=== PATIENT | female | born 1945 | race Hispanic/Latino ===

== ENCOUNTER → 2020-04-02 | Outpatient (CLI) | payer OTHER ==
[~2020-04-02] MED LIST: LISINOPRIL PO; VALIUM PO; [UNRECOGNIZED DRUG - CODE] PO
--- NOTE | 2020-04-02 13:43 | Diagnostic Imaging Report ---
EXAMINATION: CERVICAL SPINE 4 OR 5 VIEWS INDICATION: Cervical radiculopathy COMPARISON: None FINDINGS: No acute fracture. Vertebral body heights are maintained. Alignment appears anatomic. Mild multilevel degenerative changes with disc space narrowing and small osteophyte formation. Prevertebral soft tissues are normal in thickness. Minimally visualized lung apices are clear. IMPRESSION: Mild multilevel degenerative changes. Signed by: Dewayne Kumar MD on 04/02/2020 1:39 PM
--- NOTE | 2020-04-02 13:44 | Diagnostic Imaging Report ---
EXAMINATION: THORACIC SPINE 2VW INDICATION: Back pain COMPARISON: None FINDINGS: No acute fracture or dislocation. Vertebral body heights are well-maintained. Alignment appears anatomic. Minimal multilevel degenerative changes with small osteophyte formation. The visualized portions of the lungs are clear. IMPRESSION: No acute osseous injury. Minimal multilevel degenerative changes. Signed by: Dewayne Kumar MD on 04/02/2020 1:41 PM
== END ==
LOC: RAD 11:20
PROVIDERS: ATTEND Family Medicine
DX: N64.4 Mastodynia (principal); M54.2 Cervicalgia; M54.6 Pain in thoracic spine; M54.13 Radiculopathy, cervicothoracic region
CPT/HCPCS: 72050; 72070